=== PATIENT | male | born 1970 | race Caucasian/White ===

== ENCOUNTER → 2018-07-20 08:30 | Outpatient (CLI) | payer OTHER, MEDICAID, SELFPAY ==
[2018-07-20 10:18] LABS: Thyroid Stimulating Hormone 0.64 uIU/mL (0.47-4.68)
== END ==
PROVIDERS: Visit Provider Internal Medicine Endocrinology, Diabetes & Metabolism
DX: E03.8 Other specified hypothyroidism (principal)
CPT/HCPCS: 36415; 84443

== ENCOUNTER 2020-09-06 23:09 | Emergency (ER) | payer OTHER, MEDICAID, SELFPAY ==
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
[2020-09-06 23:28] VITALS: BP 133/92; PULSE 97; RESP 18; TEMP 36.6; O2SAT 98; BMI 31.1
[2020-09-07] MEDS: CYCLOBENZAPRINE 10 MG PREPACK 1 BOTTLE MISC (00:37)
[2020-09-07] MEDS: LIDOCAINE PATCH 1 EACH ADH..PATCH TOP (00:37)
[2020-09-07] MEDS: KETOROLAC 60 MG/2 ML VIAL IM (00:37)
== END 2020-09-07 00:54 | disposition home or self-care (01) ==
PROVIDERS: Emergency Provider Emergency Medicine; Family Provider Internal Medicine Endocrinology, Diabetes & Metabolism
DX: M62.838 Other muscle spasm (principal); V89.2XXA Person injured in unspecified motor-vehicle accident, traffic, initial encounter
CPT/HCPCS: 96372; 99283; J1885

== ENCOUNTER → 2021-06-16 15:01 | Outpatient (CLI) | payer OTHER, MEDICAID, SELFPAY ==
[2021-06-16 15:40] LABS: Add Manual Diff / Slide Review NO; Basophils Absolute Auto 0 /uL (0-100); Basophils Percent Auto 0.2 % (0-2); Eosinophils Absolute Auto 200 /uL (0-450); Eosinophils Percent Auto 2.2 % (2-4); Lymphocytes Absolute Auto 2100 /uL (1100-4500); Lymphocytes Percent Auto 28.1 % (25-40); Mean Corpuscular Hemoglobin 30.8 PG (26-34); Mean Corpuscular Volume 90.6 fL (80-100); Monocytes Absolute Auto 600 /uL (0-900); Monocytes Percent Auto 8.8 % (3-14); Neutrophils Absolute Auto 4400 /uL (1500-7000); Neutrophils Percent Auto 60.7 % (50-75); Platelet Count 279 X10^3/uL (150-400); Red Blood Cell Count 4.86 X10^6/uL (4.5-5.9); Red Cell Distribution Width 13.3 % (11.6-14.8); White Blood Cell Count 7.3 X10^3/uL (4.5-11.0)
[2021-06-16 16:07] LABS: Alanine Aminotransferase 64 IU/L (<50); Albumin 4.5 g/dL (3.5-5.0); Albumin Globulin Ratio 1.5 (1.0-2.8); Alkaline Phosphatase 70 U/L (38-126); Aspartate Aminotransferase 47 IU/L (17-59); Bilirubin Total 0.5 mg/dL (0.2-1.3); Bilirubin Unconjugated 0.3 mg/dL (0.0-1.1); HEMOLYSIS 34 (0-50); Total Protein 7.5 g/dL (6.3-8.2)
[2021-06-16 16:36] LABS: Prostate Specific Antigen Scrn 0.898 ng/mL (0.1-4.0)
== END ==
PROVIDERS: Family Provider Internal Medicine Endocrinology, Diabetes & Metabolism; Referring Provider Internal Medicine Endocrinology, Diabetes & Metabolism; Visit Provider Internal Medicine Endocrinology, Diabetes & Metabolism
DX: E03.8 Other specified hypothyroidism (principal); E29.1 Testicular hypofunction
CPT/HCPCS: 36415; 80076; 85025; G0103

== ENCOUNTER 2021-11-02 00:39 | Emergency (ER) | payer OTHER, MEDICAID, SELFPAY ==
[2021-11-02 00:48] VITALS: BP 172/111; PULSE 111; RESP 18; TEMP 36.6; O2SAT 95; BMI 32.5
--- NOTE | 2021-11-02 01:22 | ED_ITS ---
HPI - Extremity Problem General Chief complaint: Extremity Problem,Nontraumatic Stated complaint: rt leg swelling, itching Time Seen by Provider: 11/02/21 01:12 Source: patient Mode of arrival: Ambulatory Limitations: no limitations History of Present Illness HPI Narrative: This is a 50-year-old male comes in with complaint of right leg having or redness, itching and swelling. Patient states he developed a wound on his right anterior constantino. He states he believes this was after ring rubber boots underneath his pants. These were new boots for work and that they rubbed on his leg. He got a wound and then has since developed infection. He states that was about a week ago. He has had swelling, warmth but states it is only minimally painful. He states he does need medication for hypothyroidism. He does smoke, he drinks occasionally and uses marijuana and methamphetamines. He states he does not use IV drugs. He denies fevers or chills. No nausea or vomiting or other symptoms. No numbness, tingling or weakness. He has had a cholecystectomy in the past. Related Data Home Medications Medication Instructions Recorded Confirmed testosterone 75 mg implant pellet 75 mg PO #0 08/24/16 (Testopel) Previous Rx's Medication Instructions Recorded cephalexin 500 mg capsule (Keflex) 500 mg PO TID 7 Days #0 cap 08/24/16 naproxen 500 mg tablet 500 mg PO Q12HP PRN #20 tab 08/24/16 cyclobenzaprine 10 mg tablet 10 mg PO TID PRN #14 tab 09/07/20 ketorolac 10 mg tablet 10 mg PO Q6H PRN #14 tab 09/07/20 lidocaine 5 % topical patch 1 patch TOP DAILY #15 each 09/07/20 (Lidoderm) doxycycline hyclate 100 mg tablet 100 mg PO BID #20 tab 11/02/21 Allergies Allergy/AdvReac Type Severity Reaction Status Date / Time No Known Drug Allergies Allergy Verified 09/07/20 00:50 Review of Systems Review of Systems ROS Unobtainable: All systems reviewed & are unremarkable except as noted in HPI and below Patient History Social History Smoking Status: Current every day smoker Smoking Status: Current every day smoker tobacco type: cigarettes alcohol intake frequency: 0-2 drinks per day Substance Use Type: marijuana and methamphetamine Exam Narrative Exam Narrative: GENERAL: Alert and oriented x three, male in mild distress. HEENT: Head normocephalic, atraumatic, EOMI, pupils reactive, face symmetric, moist mucous membranes NECK: Supple, full range of motion CARDIOVASCULAR: Regular rate and rhythm without murmurs, rubs or gallops. RESPIRATORY: Breath sounds equal bilaterally, no wheezes rales or rhonchi. ABDOMEN: Soft, nontender. Normoactive bowel sounds all 4 quadrants. No guarding or rebound, rigidity, no mass : No CVA tenderness EXTREMITIES: Normal range of motion. Patient's right leg has a new 1/2 cm oval wound that is scabbed over without any drainage, fluctuance or induration but there is a surrounding area of 7 cm of cellulitis tracking down his leg. There is warmth. Patient does have swelling of the calf. He is neurovascularly intact. Normal range of motion. 2+ dorsalis pedis. Patient has normal sensation throughout. NEUROLOGICAL: Cranial nerves II through XII grossly intact. Moving all extremities SKIN: Warm, dry, no petechiae, no rashes or lesions otherwise appreciated. Initial Vital Signs Initial Vital Signs: Vital Signs Temperature 97.8 F 11/02/21 00:48 Pulse Rate 111 H 11/02/21 00:48 Respiratory Rate 18 11/02/21 00:48 Blood Pressure 172/111 H 11/02/21 00:48 Pulse Oximetry 95 11/02/21 00:48 Course Orders Ordered: Discontinued Medications Doxycycline Hyclate (Doxycycline Hyclate 100 Mg Tablet) 100 mg PO NOW ONE Stop: 11/02/21 01:20 Last Admin: 11/02/21 01:26 Dose: 100 mg Documented by: SACHIN Vital Signs Vital signs: Vital Signs - 8 hr 11/02/21 00:48 Temperature 97.8 F Pulse Rate 111 H Respiratory Rate 18 Blood Pressure 172/111 H Pulse Oximetry 95 MDM - Extremity (Nontraumatic) [facility] Narrative Medical decision making narrative: This is a 50-year-old man emergency department with a wound and cellulitis that is been present for approximately a week. The wound itself is scab without any drainage but he has surrounding cellulitis. Patient does have a history of methamphetamine abuse but states he does not inject drugs. We discussed starting oral antibiotics. We did discuss obtaining lab work and further evaluation but patient states he is quite difficult to obtain labs are IV access and defers. Patient's leg was marked and he was asked to return if cellulitis is spreading beyond this line or if he is not having any improvement 48 hours. Discharge Plan Departure Patient Disposition: Home Clinical Impression: Wound of left leg, Cellulitis of leg Instructions: DI for Cellulitis -- Adult Activity Restrictions/Additional Instructions: Follow-up in 48 hours for recheck unless you are having significant improvement. Take antibiotics until completely gone. Prescription sent to [facility] in [place]. Wound Care: Keep wound(s) clean and dry. Wash daily with soap and water only. Do not use over the counter products (alcohol or peroxide)on the wounds unless instructed by a physician. If wound condition worsens (increased/expanding redness, developing fluid blisters, or worsening pain), either contact your doctor for an urgent re- assessment , or return to the Emergency Department. Return to the Emergency Department for any new or worsening symptoms. Return if fever greater than 100.4 Fahrenheit, increased swelling, increasing pain or worsening symptoms such as increased discharge or spreading redness. Prescriptions: New doxycycline hyclate 100 mg tablet 100 mg PO BID Qty: 20 0RF No Action testosterone [Testopel] 75 MG pellet 75 mg PO Qty: 0 0RF cephalexin [Keflex] 500 MG capsule 500 mg PO TID 7 Days Qty: 0 0RF naproxen 500 MG tablet 500 mg PO Q12HP PRNQty: 20 0RF cyclobenzaprine 10 mg tablet 10 mg PO TID PRN (Reason: muscle spasm) Qty: 14 0RF ketorolac 10 mg tablet 10 mg PO Q6H PRN (Reason: pain) Qty: 14 0RF lidocaine [Lidoderm] 5 % adhesive patch,medicated 1 patch TOP DAILY Qty: 15 0RF Rx Instructions: leave on most painful area for 12 hrs
[2021-11-02] MEDS: DOXYCYCLINE HYCLATE 100 MG TABLET PO (01:26)
== END 2021-11-02 01:32 | disposition home or self-care (01) ==
PROVIDERS: Emergency Provider Emergency Medicine; Family Provider Internal Medicine Endocrinology, Diabetes & Metabolism
DX: S81.802A Unspecified open wound, left lower leg, initial encounter (principal); L03.116 Cellulitis of left lower limb; F17.210 Nicotine dependence, cigarettes, uncomplicated; X58.XXXA Exposure to other specified factors, initial encounter
CPT/HCPCS: 99283

== ENCOUNTER → 2022-01-19 12:58 | Outpatient (CLI) | payer OTHER, MEDICAID, SELFPAY ==
--- NOTE | 2022-01-19 | DI.MG.S_ITS ---
MALE BILATERAL DIGITAL DIAGNOSTIC MAMMOGRAM 3D/2D: 01/19/2022 CLINICAL: Palpable left breast lump. baseline. No prior exams were available for comparison. There is mild gynecomastia in the right breast. There also is large area of presumed gynecomastia in the left breast that correlates with clinical concern, palpable abnormality, and reported tenderness. No significant masses, calcifications, or other findings are seen in either breast. IMPRESSION: INCOMPLETE: NEEDS ADDITIONAL IMAGING EVALUATION There is a large area of presumed gynecomastia in the left breast that correlates with clinical concern, palpable abnormality, and reported tenderness. This is significantly more pronounced than the right breast. A left ultrasound is recommended for further evaluation and is scheduled to immediately follow this examination. Right breast gynecomastia is benign. This exam was interpreted at Station ID: [id number]. NOTE: For mammograms, a report in lay terms will be sent to the patient. Approximately 15% of breast malignancies will not be visualized mammographically. In the management of a palpable breast mass, a negative mammogram must not discourage biopsy of a clinically suspicious lesion. Electronically Signed By: Olivier Hahn M.D. aty/:01/19/2022 13:45:59 ACR BI-RADS Category 0: Incomplete [id number]
--- NOTE | 2022-01-19 | DI.US.S_ITS ---
PROCEDURE: US THYROID INDICATIONS: HYPOTHYROID TECHNIQUE: Real-time scanning was performed of the thyroid gland, with image documentation. COMPARISON: None. FINDINGS: Right: Thyroid lobe measures 2.5 x 1.0 x 1.1 cm, and is homogeneous in echotexture. Left: Thyroid lobe measures 2.4 x 0.8 x 1 cm, and is homogenous in echotexture. Isthmus: 2.1 mm thick. No thyroid nodules or masses. Thyroid gland has diffusely heterogeneous echotexture. IMPRESSION: No thyroid nodules or masses. Diffuse thyroid gland heterogeneous echotexture is nonspecific but can be related to chronic thyroiditis. Please correlate with clinical and laboratory Dictated by: Eunice Hayward MD, PhD on 01/19/2022 at 15:34 Approved by: Eunice Hayward MD, PhD on 01/19/2022 at 15:35
--- NOTE | 2022-01-19 | DI.US.S_ITS ---
PROCEDURE: US ABDOMEN LIMITED INDICATIONS: ELEVATED LIVER ENZYMES TECHNIQUE: Real-time focused scanning was performed of the abdomen, with image documentation. COMPARISON: None. FINDINGS: Severe hepatic steatosis. No focal hepatic mass. There is a 1 cm simple cyst in the right hepatic lobe. No intrahepatic or extrahepatic biliary ductal dilatation. Cholecystectomy. Pancreas is poorly visualized but grossly unremarkable. IMPRESSION: Severe hepatic steatosis. Dictated by: Silas Kelly M.D. on 01/19/2022 at 15:43 Approved by: Silas Kelly M.D. on 01/19/2022 at 15:45
--- NOTE | 2022-01-19 | DI.US.S_ITS ---
ULTRASOUND OF LEFT BREAST: 01/19/2022 CLINICAL: Palpable left breast lump. Comparison is made to exam dated: 01/19/2022 mammogram - [facility]. Color flow and real-time ultrasound of the left breast were performed. [place] scale images of the real-time examination were reviewed. There is prominent gynecomastia in the left breast that correlates with mammography, clinical concern, and reported tenderness. IMPRESSION: BENIGN There is no sonographic evidence of malignancy. Recommend clinical follow up for persistent or worsening symptoms, or development of any clinically suspicious findings. Findings and recommendations were conveyed to the patient during today's evaluation. This exam was interpreted at Station ID: [id number]. Electronically Signed By: Olivier Hahn M.D. aty/:01/19/2022 16:47:30 Ultrasound BI-RADS: 2 Benign
== END ==
PROVIDERS: Family Provider Internal Medicine Endocrinology, Diabetes & Metabolism; PCP Internal Medicine Endocrinology, Diabetes & Metabolism; Referring Provider Internal Medicine Endocrinology, Diabetes & Metabolism; Visit Provider Internal Medicine Endocrinology, Diabetes & Metabolism
DX: N62 Hypertrophy of breast (principal); R74.8 Abnormal levels of other serum enzymes; E03.9 Hypothyroidism, unspecified; R92.8 Other abnormal and inconclusive findings on diagnostic imaging of breast; E29.1 Testicular hypofunction; K76.0 Fatty (change of) liver, not elsewhere classified
CPT/HCPCS: 76536; 76642; 76705; 77066; G0279

== ENCOUNTER 2022-05-16 02:18 | Emergency (ER) | payer OTHER, MEDICAID, SELFPAY ==
[2022-05-16 02:26] VITALS: BP 127/87; PULSE 119; RESP 20; TEMP 36.7; O2SAT 96; BMI 32.5
--- NOTE | 2022-05-16 02:28 | DI.RAD.S_ITS ---
PROCEDURE: XR FOREARM LT 2V INDICATIONS: Dog bite with infection eval for FB TECHNIQUE: 2 views of the forearm were acquired. COMPARISON: None. FINDINGS: Bones: No fractures or dislocations. No suspicious bony lesions. Soft tissues: No suspicious soft tissue calcifications or masses. IMPRESSION: Unremarkable left forearm radiographs Note: Final report is concordant with preliminary interpretation by [employer] [facility] Approved by: Michael Michael M.D. on 05/16/2022 at 6:32
--- NOTE | 2022-05-16 02:32 | ED_ITS ---
HPI - Animal Bite General Chief Complaint: Animal Bite Stated Complaint: DOG BITE Time Seen by Provider: 05/16/22 02:26 Source: patient Mode of arrival: Ambulatory History of Present Illness HPI narrative: Patient is a 51-year-old male who is here for evaluation of swelling and discomfort after sustaining a dog bite to his left forearm. Dog bite occurred approximately 36 hours ago. He stated that it was provoked from dog that belongs to a friend that is up-to-date on shots. He states that he pulled the dog's tail and the dog turned around and bit him in the arm. Since that time he has had worsening pain and swelling. No fevers. Related Data Home Medications Medication Instructions Recorded Confirmed testosterone 75 mg implant pellet 75 mg PO ##0 08/24/16 (Testopel) Previous Rx's Medication Instructions Recorded cephalexin 500 mg capsule (Keflex) 500 mg PO TID 7 days #0 caps 08/24/16 naproxen 500 mg tablet 500 mg PO Q12HP PRN #20 tabs 08/24/16 cyclobenzaprine 10 mg tablet 10 mg PO TID PRN muscle spasm #14 09/07/20 tabs ketorolac 10 mg tablet 10 mg PO Q6H PRN pain #14 tabs 09/07/20 lidocaine 5 % topical patch 1 patch topical DAILY #15 ea 09/07/20 (Lidoderm) doxycycline hyclate 100 mg tablet 100 mg PO BID #20 tabs 11/02/21 clindamycin HCl 300 mg capsule 300 mg PO QID 7 days #28 caps 05/16/22 sulfamethoxazole 800 1 tab PO BID 7 days #14 tabs 05/16/22 mg-trimethoprim 160 mg tablet (Bactrim DS) Allergies Allergy/AdvReac Type Severity Reaction Status Date / Time No Known Drug Allergies Allergy Verified 09/07/20 00:50 Review of Systems Constitutional Constitutional: Reports system reviewed and no additional complaints, except as documented Musculoskeletal Musculoskeletal: Reports system reviewed and no additional complaints, except as documented Integumentary/Breasts Skin/Breast: Reports system reviewed and no additional complaints, except as documented Neurologic Neurologic: Reports system reviewed and no additional complaints, except as documented Hematologic/Lymphatic On Anticoagulants: No Patient History Medical History Wound of left leg Social History Smoking Status: Current every day smoker Smoking Status: Current every day smoker tobacco type: cigarettes alcohol intake frequency: 0-2 drinks per day Substance Use Type: marijuana Exam Initial Vital Signs Initial Vital Signs: Vital Signs Temperature 98.1 F 05/16/22 02:26 Pulse Rate 119 H 05/16/22 02:26 Respiratory Rate 20 05/16/22 02:26 Blood Pressure 127/87 05/16/22 02:26 Pulse Oximetry 96 05/16/22 02:26 Oxygen Delivery Method 05/16/22 02:26 HENMT Head: normal to inspection and normocephalic Resp Effort & Inspection: normal respiratory effort Cardio Rate: regular rate Pulses: radial pulses present on the left Skin Other: Patient has 2 puncture wounds on the dorsal aspect of his left forearm just distal to the elbow. There is no active bleeding. He does have redness ex tending from his elbow down to the distal 1/3 of his left forearm. No redness on the volar aspect of his arm. Neuro Sensory Exam: no sensory deficits noted Extrem Other: Swelling and redness to the left forearm as described in the skin section Course Orders Ordered: ED Orders 05/16/22 02:28 XR forearm LT 2V Stat 05/16/22 02:39 Basic Metabolic Panel Stat Complete Blood Count AUTO DIFF Stat Lactate (Lactic Acid) Stat 05/16/22 03:00 Blood Culture Stat Discontinued Medications Hydrocodone Bitart/Acetaminophen (Hydrocodone/Acet 5/325 Tablet) 1 tab PO NOW ONE Stop: 05/16/22 02:56 Last Admin: 05/16/22 02:58 Dose: 1 tab Documented By: SINDY Diphtheria/Tetanus/Acell Pertussis (Tet,Diph,Pertuss(Acell),Vac/Pf 0.5 Ml Syringe) 0.5 ml IM .ONCE ONE Stop: 05/16/22 02:31 Last Admin: 05/16/22 02:56 Dose: 0.5 ml Documented By: SINDY Clindamycin Phosphate (Cleocin) 600 mg in 50 mls @ 50 mls/hr IV NOW ONE Stop: 05/16/22 03:30 Last Admin: 05/16/22 02:56 Dose: 50 mls/hr Documented By: SINDY Trimethoprim/Sulfamethoxazole (Trimeth/Sulfa 160/800 (Ds) Tablet) 1 tab PO NOW ONE Stop: 05/16/22 02:32 Last Admin: 05/16/22 02:57 Dose: 1 tab Documented By: SINDY Vital Signs Vital signs: Vital Signs - 8 hr 05/16/22 02:26 Temperature 98.1 F Pulse Rate 119 H Respiratory Rate 20 Blood Pressure 127/87 Pulse Oximetry 96 Oxygen Delivery Method Room Air MDM - Animal Bite Lab Data Attestation: I reviewed the patient's lab results. Result diagrams: 05/16/22 02:39 05/16/22 02:39 Labs: Lab Results 05/16/22 05/16/22 05/16/22 Range/Units 02:39 02:39 02:39 WBC 14.6 H (4.5-11.0) X10^3/uL RBC 4.52 (4.5-5.9) X10^6/uL Hgb 13.8 (13.5-17.5) g/dL Hct 41.0 (41-53) % MCV 90.8 (80-100) fL MCH 30.5 (26-34) PG MCHC 33.6 (30-36) % RDW 13.4 (11.6-14.8) % Plt Count 248 (150-400) X10^3/uL Neut % (Auto) 75.6 H (50-75) % Lymph % (Auto) 14.0 L (25-40) % [place] % (Auto) 9.3 (3-14) % Eos % (Auto) 0.3 L (2-4) % Baso % (Auto) 0.8 (0-2) % Neut # (Auto) 14183 H (7271-2987) /uL Lymph # (Auto) 2000 (3752-5871) /uL [place] # (Auto) 1400 H (0-900) /uL Eos # (Auto) 0 (0-450) /uL Baso # (Auto) 100 (0-100) /uL Sodium 135 L (137-145) mmol/L Potassium 4.0 (3.4-5.1) mmol/L Chloride 100 (98-107) mmol/L Carbon Dioxide 25 (22-32) mmol/L BUN 14 (9-20) mg/dL Creatinine 1.10 (0.66-1.25) mg/dL Estimated GFR > 60 (>60) mL/min BUN/Creatinine Ratio 12.7 (6-22) Glucose 136 H (70-100) mg/dL Lactate 1.3 (0.7-2.1) mmol/L Calcium 9.4 (8.4-10.2) mg/dL Imaging Data Extremity x-ray #1: My Impression: No fractures, no foreign bodies MDM Narrative Medical decision making narrative: Patient does have obvious skin infection from the dog bite of the left forearm. Low suspicion for abscess based on his exam today. Was initially tachycardic however this did improve with pain medication. His heart rate improved from the 110's to the 100's. Does have a leukocytosis but also has a known skin infection. Patient is able to tolerate oral intake. His lactate is unremarkable. No foreign bodies noted on the x-ray. Patient was given clindamycin and Bactrim upon arrival as decision was made as to whether not to admit him to the hospital for IV antibiotics versus discharge. This choice of antibiotics was based on the fact that it was available as IV but also would be available was an oral preparation if he was discharged home. Based on his ability to tolerate oral intake, his improvement in heart rate after his pain was controlled, the fact that he is nontoxic-appearing will discharge home with oral antibiotics although he was given very strict return precautions. Since he was already started on clinda and Bactrim we will continue this. It was sent to the pharmacy of his choice. He was given strict return precautions. He expressed understanding and agreement. Patient's tetanus was also updated Discharge Plan Departure Patient Disposition: Home Clinical Impression: Cellulitis, Bite by animal Instructions: DI for Cellulitis -- Adult, DI for Dog Bite Activity Restrictions/Additional Instructions: You can shower like normal. It is extremely important that you continue with the antibiotics. They were electronically transmitted to [facility]. They are the same antibiotics that you were given here in the emergency department although they are both medications that she will take by mouth. If your symptoms worsen or you develop fevers or the redness worsens around your arm you do need to return to the emergency department for further evaluation. Your tetanus was also updated today. Prescriptions: New sulfamethoxazole-trimethoprim [Bactrim DS] 800-160 mg tablet 1 tab PO BID 7 Days Qty: 14 0RF clindamycin HCl 300 mg capsule 300 mg PO QID 7 Days Qty: 28 0RF No Action testosterone [Testopel] 75 MG pellet 75 mg PO Qty: 0 cephalexin [Keflex] 500 MG capsule 500 mg PO TID 7 Days Qty: 0 0RF naproxen 500 MG tablet 500 mg PO Q12HP PRNQty: 20 0RF cyclobenzaprine 10 mg tablet 10 mg PO TID PRN (Reason: muscle spasm) Qty: 14 0RF ketorolac 10 mg tablet 10 mg PO Q6H PRN (Reason: pain) Qty: 14 0RF lidocaine [Lidoderm] 5 % adhesive patch,medicated 1 patch TOP DAILY Qty: 15 0RF Rx Instructions: leave on most painful area for 12 hrs doxycycline hyclate 100 mg tablet 100 mg PO BID Qty: 20 0RF Referrals: Javy Banegas MD [Primary Care Provider] -
[2022-05-16 02:51] LABS: Add Manual Diff / Slide Review NO; Basophils Absolute Auto 100 /uL (0-100); Basophils Percent Auto 0.8 % (0-2); Eosinophils Absolute Auto 0 /uL (0-450); Eosinophils Percent Auto 0.3 % (2-4); Hemoglobin 13.8 g/dL (13.5-17.5); Lymphocytes Absolute Auto 2000 /uL (1100-4500); Mean Corpuscular HGB Conc 33.6 % (30-36); Mean Corpuscular Hemoglobin 30.5 PG (26-34); Mean Corpuscular Volume 90.8 fL (80-100); Monocytes Absolute Auto 1400 /uL (0-900); Monocytes Percent Auto 9.3 % (3-14); Neutrophils Absolute Auto 11000 /uL (1500-7000); Neutrophils Percent Auto 75.6 % (50-75); Platelet Count 248 X10^3/uL (150-400); Red Blood Cell Count 4.52 X10^6/uL (4.5-5.9); Red Cell Distribution Width 13.4 % (11.6-14.8); White Blood Cell Count 14.6 X10^3/uL (4.5-11.0)
[2022-05-16] MEDS: TET,DIPH,PERTUSS(ACELL),VAC/PF 0.5 ML SYRINGE IM (02:56)
[2022-05-16] MEDS: CLINDAMYCIN 600 MG/50 ML PIGGYBACK 50 MG IV (02:56)
[2022-05-16] MEDS: TRIMETH/SULFA 160/800 (DS) TABLET 1 TAB PO (02:57)
[2022-05-16] MEDS: HYDROCODONE/ACET 5/325 TABLET 1 TAB PO (02:58)
[2022-05-16 03:04] LABS: Lactate (Lactic Acid) 1.3 mmol/L (0.7-2.1)
[2022-05-16 03:05] LABS: BUN Creatinine Ratio 12.7 (6-22); Blood Urea Nitrogen 14 mg/dL (9-20); Calcium 9.4 mg/dL (8.4-10.2); Carbon Dioxide 25 mmol/L (22-32); Chloride 100 mmol/L (98-107); Estimated Glomerular Filt Rate > 60 mL/min (>60); Glucose 136 mg/dL (70-100); HEMOLYSIS 27 (0-50); Sodium 135 mmol/L (137-145)
== END 2022-05-16 04:30 | disposition home or self-care (01) ==
PROVIDERS: Emergency Provider Emergency Medicine; Family Provider Internal Medicine Endocrinology, Diabetes & Metabolism; PCP Internal Medicine Endocrinology, Diabetes & Metabolism
DX: L03.114 Cellulitis of left upper limb (principal); W54.0XXA Bitten by dog, initial encounter; Z23 Encounter for immunization
CPT/HCPCS: 36415; 73090; 80048; 83605; 85025; 87040; 90471; 96365; 96366; 99284; 90715

== ENCOUNTER 2022-10-25 02:06 | Emergency (ER) | payer OTHER, MEDICAID, SELFPAY ==
--- NOTE | 2022-10-25 02:26 | ED_ITS ---
HPI - General Adult General Chief complaint: Animal Bite Stated complaint: LT. HAND INDEX FINGER CAT BITE Time Seen by Provider: 10/25/22 02:24 History of Present Illness HPI narrative: 51-year-old gentleman with history of pituitary adenoma presents approximately 12 hours after sustaining a puncture wound full-thickness cat bite to his left index finger. States he was giving his cat a bath when it became somewhat agitated and bit him. He did wash the wound well but over the ensuing 12 hours is noticed increasing throbbing, swelling and redness he comes in for further evaluation. He does not note any fevers, nausea, headaches, abdominal pain, vomiting or diarrhea Related Data Home Medications Medication Instructions Recorded Confirmed testosterone 75 mg implant pellet 75 mg PO ##0 08/24/16 (Testopel) Previous Rx's Medication Instructions Recorded cephalexin 500 mg capsule (Keflex) 500 mg PO TID 7 days #0 caps 08/24/16 naproxen 500 mg tablet 500 mg PO Q12HP PRN #20 tabs 08/24/16 cyclobenzaprine 10 mg tablet 10 mg PO TID PRN muscle spasm #14 09/07/20 tabs ketorolac 10 mg tablet 10 mg PO Q6H PRN pain #14 tabs 09/07/20 lidocaine 5 % topical patch 1 patch topical DAILY #15 ea 09/07/20 (Lidoderm) doxycycline hyclate 100 mg tablet 100 mg PO BID #20 tabs 11/02/21 amoxicillin 875 mg-potassium 1 tab PO BID #18 tabs 10/25/22 clavulanate 125 mg tablet Allergies Allergy/AdvReac Type Severity Reaction Status Date / Time No Known Drug Allergies Allergy Verified 10/25/22 02:27 Review of Systems Review of Systems Narrative: Remainder of complete review of systems is otherwise unremarkable except for that included in the HPI. Patient History Medical History Wound of left leg Social History Smoking Status: Current every day smoker Smoking Status: Current every day smoker tobacco type: cigarettes alcohol intake frequency: 0-2 drinks per day Substance Use Type: marijuana Exam Initial Vital Signs Initial Vital Signs: General: Alert appropriate in no acute distress Respiratory: Able to speak in full sentences, no obvious respiratory distress Skin: No obvious rashes, warm and dry Neurologic: Grossly intact no obvious asymmetries or abnormalities Psych: appropriate insight and affect, cooperative Extremity: Left index finger with a small laceration over the nail bed and 2 small puncture wounds appreciated on the finger pad. There is no drainage or bleeding. The finger is increasing red, swollen and tender with no lymphangitic streaking. He does have limited range of motion because of the swelling but he is otherwise neurovascularly intact. There is no axillary adenopathy. Medical Decision Making MDM Narrative Medical decision making narrative: 51-year-old gentleman presents approximately 12 hours after his cat bit him in left index finger with signs of infection starting. No obvious abscess. No wounds that need suturing. Have suggested 10 days of Augmentin and will give him a dose now and 3 doses until pharmacies are open on the . Talked about deep tissue infection and complications with hand wounds and encouraged him to return to the emergency department should he be developing any signs or symptoms of these. At this point I do not expect sepsis, osteomyelitis, abscess development. He is safe for discharge home Discharge Plan Departure Patient Disposition: Home Clinical Impression: Cat bite Instructions: DI for Cat Bite Activity Restrictions/Additional Instructions: Thank you for coming in today Cat bites and fingertip infections can get quite infected. I am going to place you on Augmentin common antibiotic, for the next 10 days. You have been given your 1st dose and a couple of tablets to get you through [place] and a prescription to picking machine operator by the . Please watch for signs of increasing swelling, redness, any streaking up her arm needs to be evaluated immediately. I would expect at least 24 hours before the swelling and pain does begin to decrease but it should not be significantly worsening. The Augmentin was electronically transmitted to [facility] in [place] Using 400 mg of ibuprofen (2 [id number] pills) and 1 Tylenol every 6 hours can be very helpful in controlling pain. If you find that you are getting worse or develop any new symptoms, please feel free to return to the emergency department for further evaluation. Prescriptions: New amoxicillin-pot clavulanate 875-125 mg tablet 1 tab PO BID Qty: 18 0RF No Action testosterone [Testopel] 75 MG pellet 75 mg PO Qty: 0 cephalexin [Keflex] 500 MG capsule 500 mg PO TID 7 Days Qty: 0 0RF naproxen 500 MG tablet 500 mg PO Q12HP PRNQty: 20 0RF cyclobenzaprine 10 mg tablet 10 mg PO TID PRN (Reason: muscle spasm) Qty: 14 0RF ketorolac 10 mg tablet 10 mg PO Q6H PRN (Reason: pain) Qty: 14 0RF lidocaine [Lidoderm] 5 % adhesive patch,medicated 1 patch TOP DAILY Qty: 15 0RF Rx Instructions: leave on most painful area for 12 hrs doxycycline hyclate 100 mg tablet 100 mg PO BID Qty: 20 0RF Referrals: Javy Banegas MD [Primary Care Provider] -
[2022-10-25 02:27] VITALS: BP 170/96; PULSE 106; RESP 18; TEMP 36.8; O2SAT 97; BMI 32.5
[2022-10-25] MEDS: OXYCODONE/ACETAMINOPHEN 5/325 TABLET 1 TAB PO (02:48)
[2022-10-25] MEDS: AMOXICILLIN/CLAV 875/125 MG 4 TAB PO (02:48)
[2022-10-25] MEDS: OXYCODONE/APAP 5/325 PREPACK 1 BOTTLE MISC (02:48)
[2022-10-25] MEDS: IBUPROFEN 400 MG TABLET PO (02:48)
== END 2022-10-25 02:56 | disposition home or self-care (01) ==
PROVIDERS: Emergency Provider Emergency Medicine; Family Provider Internal Medicine Endocrinology, Diabetes & Metabolism; PCP Internal Medicine Endocrinology, Diabetes & Metabolism
DX: S61.251A Open bite of left index finger without damage to nail, initial encounter (principal); W55.01XA Bitten by cat, initial encounter
CPT/HCPCS: 99283

== ENCOUNTER 2023-04-25 18:14 | Emergency (ER) | payer OTHER, MEDICAID, SELFPAY ==
[2023-04-25 18:24] VITALS: BP 175/95; PULSE 115; RESP 20; TEMP 38.3; O2SAT 96; BMI 32.5
[2023-04-25 19:03] LABS: Influenza A - CEPHEID Flu A POSITIVE (NEGATIVE); Influenza B - CEPHEID Flu B NEGATIVE (NEGATIVE); Respiratory Syncytial Virus Negative (Negative)
[2023-04-25 19:13] LABS: COVID-19 CEPHEID 4-PLEX PCR Negative (Negative)
--- NOTE | 2023-04-25 19:36 | ED_ITS ---
HPI - URI/Sore Throat General Chief Complaint: Fever Stated Complaint: FEVER 104F Time Seen by Provider: 04/25/23 19:14 Source: patient and family Mode of arrival: Ambulatory History of Present Illness HPI Narrative: Patient is a 52-year-old male history of smoking presenting today with 3 days of body aches fevers chills and generalized malaise. He has a mild cough no significant shortness of breath. No abdominal pain nausea or vomiting. He has been trying to drink fluid overall does not feel well. Related Data Home Medications Medication Instructions Recorded Confirmed testosterone 75 mg implant pellet 75 mg PO ##0 08/24/16 (Testopel) Previous Rx's Medication Instructions Recorded cephalexin 500 mg capsule (Keflex) 500 mg PO TID 7 days #0 caps 08/24/16 naproxen 500 mg tablet 500 mg PO Q12HP PRN #20 tabs 08/24/16 cyclobenzaprine 10 mg tablet 10 mg PO TID PRN muscle spasm #14 09/07/20 tabs ketorolac 10 mg tablet 10 mg PO Q6H PRN pain #14 tabs 09/07/20 lidocaine 5 % topical patch 1 patch topical DAILY #15 ea 09/07/20 (Lidoderm) doxycycline hyclate 100 mg tablet 100 mg PO BID #20 tabs 11/02/21 amoxicillin 875 mg-potassium 1 tab PO BID #18 tabs 10/25/22 clavulanate 125 mg tablet Allergies Allergy/AdvReac Type Severity Reaction Status Date / Time No Known Drug Allergies Allergy Verified 04/25/23 18:30 Review of Systems Review of Systems ROS Unobtainable: All systems reviewed & are unremarkable except as noted in HPI and below Patient History Medical History Wound of left leg Social History Smoking Status: Current every day smoker Smoking Status: Current every day smoker tobacco type: cigarettes alcohol intake frequency: 0-2 drinks per day Substance Use Type: marijuana Exam Initial Vital Signs Initial Vital Signs: Vital Signs Temperature 101 F H 04/25/23 18:24 Pulse Rate 115 H 04/25/23 18:24 Respiratory Rate 20 04/25/23 18:24 Blood Pressure 175/95 H 06/25/23 18:24 Pulse Oximetry 96 04/25/23 18:24 Oxygen Delivery Method Room Air 04/25/23 18:24 GENERAL: Alert 52-year-old male appears to not feel well HEENT: Head atraumatic,EOMI, pupils reactive, face symmetric, moist mucous me mbranes CARDIOVASCULAR: Tachycardic regular no murmur RESPIRATORY: Breath sounds equal bilaterally, no wheezes rales or rhonchi. ABDOMEN: Soft, nontender. Normoactive bowel sounds all 4 quadrants. No guarding or rebound. EXTREMITIES: Normal range of motion, no clubbing or edema. Neurovascularly intact NEUROLOGICAL: Alert and oriented x4 SKIN: Warm, dry, no laceration, no petechiae, no rashes or lesions. Course Orders Ordered: ED Orders 04/25/23 19:43 Chest [XR chest 1V] Stat Blood Culture Stat 04/25/23 20:10 CBC Auto Diff [Complete Blood Count AUTO DIFF] Stat CMP [Comprehensive Metabolic Panel] Stat Lactate (Lactic Acid) Stat Discontinued Medications Sodium Chloride (Normal Saline 0.9%) 1,000 mls @ 1,000 mls/hr IV BOLUS ONE Stop: 04/25/23 20:42 Last Infusion: 04/25/23 21:15 Dose: 0 mls/hr Documented By: Admin: 04/25/23 20:15 Dose: 1,000 mls/hr Documented By: MATEO Ketorolac Tromethamine (Ketorolac 30 Mg/Ml Vial) 15 mg IV NOW ONE Stop: 04/25/23 19:44 Last Admin: 04/25/23 20:15 Dose: 15 mg Documented By: MATEO Vital Signs Vital signs: Vital Signs - 8 hr 04/25/23 20:22 04/25/23 21:30 Temperature 99.9 F H Pulse Rate 113 H 100 H Respiratory Rate 16 16 Blood Pressure 136/88 156/93 H Pulse Oximetry 97 99 Oxygen Delivery Method Room Air MDM - URI/Sore Throat Lab Data 04/25/23 20:10 04/25/23 20:10 Labs: Lab Results 04/25/23 04/25/23 04/25/23 Range/Units 18:20 20:10 20:10 WBC 5.5 (4.5-11.0) X10^3/uL RBC 4.69 (4.5-5.9) X10^6/uL Hgb 14.6 (13.5-17.5) g/dL Hct 42.9 (41-53) % MCV 91.6 (80-100) fL MCH 31.1 (26-34) PG MCHC 34.0 (30-36) % RDW 14.5 (11.6-14.8) % Plt Count 214 (150-400) X10^3/uL Neut % (Auto) 78.6 H (50-75) % Lymph % (Auto) 12.7 L (25-40) % [place] % (Auto) 7.1 (3-14) % Eos % (Auto) 0.7 L (2-4) % Baso % (Auto) 0.9 (0-2) % Neut # (Auto) 4300 (2934-7609) /uL Lymph # (Auto) 700 L (3395-2872) /uL [place] # (Auto) 400 (0-900) /uL Eos # (Auto) 0 (0-450) /uL Baso # (Auto) 0 (0-100) /uL Sodium 135 L (137-145) mmol/L Potassium 4.3 (3.4-5.1) mmol/L Chloride 99 (98-107) mmol/L Carbon Dioxide 28 (22-32) mmol/L BUN 11 (9-20) mg/dL Creatinine 1.06 (0.66-1.25) mg/dL Estimated GFR > 60 (>60) mL/min BUN/Creatinine Ratio 10.4 (6-22) Glucose 108 H (70-100) mg/dL Lactate (0.7-2.1) mmol/L Calcium 9.4 (8.4-10.2) mg/dL Total Bilirubin 0.6 (0.2-1.3) mg/dL AST 594 H (17-59) IU/L ALT 523 H (<50) IU/L Alkaline Phosphatase 82 (38-126) U/L Total Protein 8.3 H (6.3-8.2) g/dL Albumin 4.4 (3.5-5.0) g/dL Globulin 3.9 (1.7-4.1) g/dL Albumin/Globulin Ratio 1.1 (1.0-2.8) SARS-CoV-2 (PCR) Negative (Negative) Influenza A (RT-PCR) Flu a positive H (NEGATIVE) Influenza B (RT-PCR) Flu b negative (NEGATIVE) RSV (PCR) Negative (Negative) 04/25/23 Range/Units 20:10 WBC (4.5-11.0) X10^3/uL RBC (4.5-5.9) X10^6/uL Hgb (13.5-17.5) g/dL Hct (41-53) % MCV (80-100) fL MCH (26-34) PG MCHC (30-36) % RDW (11.6-14.8) % Plt Count (150-400) X10^3/uL Neut % (Auto) (50-75) % Lymph % (Auto) (25-40) % [place] % (Auto) (3-14) % Eos % (Auto) (2-4) % Baso % (Auto) (0-2) % Neut # (Auto) (7410-9429) /uL Lymph # (Auto) (8170-0799) /uL [place] # (Auto) (0-900) /uL Eos # (Auto) (0-450) /uL Baso # (Auto) (0-100) /uL Sodium (137-145) mmol/L Potassium (3.4-5.1) mmol/L Chloride (98-107) mmol/L Carbon Dioxide (22-32) mmol/L BUN (9-20) mg/dL Creatinine (0.66-1.25) mg/dL Estimated GFR (>60) mL/min BUN/Creatinine Ratio (6-22) Glucose (70-100) mg/dL Lactate 1.9 (0.7-2.1) mmol/L Calcium (8.4-10.2) mg/dL Total Bilirubin (0.2-1.3) mg/dL AST (17-59) IU/L ALT (<50) IU/L Alkaline Phosphatase (38-126) U/L Total Protein (6.3-8.2) g/dL Albumin (3.5-5.0) g/dL Globulin (1.7-4.1) g/dL Albumin/Globulin Ratio (1.0-2.8) SARS-CoV-2 (PCR) (Negative) Influenza A (RT-PCR) (NEGATIVE) Influenza B (RT-PCR) (NEGATIVE) RSV (PCR) (Negative) Imaging Data Chest x-ray: Radiologist's Impression: PROCEDURE:? XR CHEST 1V ? INDICATIONS:? influenza ? TECHNIQUE:? One view of the chest was acquired.? ? COMPARISON:? None. ? FINDINGS:? ? Surgical changes and devices:? None.? ? Lungs and pleura:? Lungs are clear.? No pleural effusions or pneumothorax.? ? Mediastinum:? Mediastinal contours appear normal.? Heart size is normal.? ? Bones and chest wall:? No suspicious bony lesions.? Overlying soft tissues appear unremarkable.? ? IMPRESSION:? No acute pulmonary process. ? ? Dictated by: Vani Emery M.D. on 04/25/2023 at 20:08 ECG Data Interpretation: Sinus tachycardia rate 112 [place] interval 58 QRS 82 QTC 39 Q-wave noted in lead [address] changes, similar to priors no ischemic changes MDM Narrative Medical decision making narrative: Patient 52-year-old male who presents with upper respiratory like symptoms tachycardic ready persistently not hypoxic. Positive for influenza A. Blood work is overall reassuring without leukocytosis her electrolyte abnormality. X- ray does not show any evidence of pneumonia. He is given fluids heart rate improved he overall feels better at this time supportive care only does not meet admission criteria Discharge Plan Departure Patient Disposition: Home Clinical Impression: Influenza A Instructions: DI for Influenza -- Adult Activity Restrictions/Additional Instructions: *You have been diagnosed with influenza a *What to do: Increase activity as tolerated increase fluids. Expect to feel poorly for the next couple of days *Continue to take medications as directed Motrin 600 mg every 6 hours if needed for mild Tylenol 1000 mg every 6 hours if needed for [id number] pain *Follow up with your primary care provider in 2-3 days or call [phone] *Return to ER if you should have increased difficulty breathing not tolerating fluids or any new, worsening or concerning symptoms Prescriptions: No Action testosterone [Testopel] 75 MG pellet 75 mg PO Qty: 0 cephalexin [Keflex] 500 MG capsule 500 mg PO TID 7 Days Qty: 0 0RF naproxen 500 MG tablet 500 mg PO Q12HP PRNQty: 20 0RF cyclobenzaprine 10 mg tablet 10 mg PO TID PRN (Reason: muscle spasm) Qty: 14 0RF ketorolac 10 mg tablet 10 mg PO Q6H PRN (Reason: pain) Qty: 14 0RF lidocaine [Lidoderm] 5 % adhesive patch,medicated 1 patch TOP DAILY Qty: 15 0RF Rx Instructions: leave on most painful area for 12 hrs doxycycline hyclate 100 mg tablet 100 mg PO BID Qty: 20 0RF amoxicillin-pot clavulanate 875-125 mg tablet 1 tab PO BID Qty: 18 0RF Referrals: Javy Banegas MD [Primary Care Provider] - Stand Alone Forms: Patient Portal/API
--- NOTE | 2023-04-25 19:43 | DI.RAD.S_ITS ---
PROCEDURE: XR CHEST 1V INDICATIONS: influenza TECHNIQUE: One view of the chest was acquired. COMPARISON: None. FINDINGS: Surgical changes and devices: None. Lungs and pleura: Lungs are clear. No pleural effusions or pneumothorax. Mediastinum: Mediastinal contours appear normal. Heart size is normal. Bones and chest wall: No suspicious bony lesions. Overlying soft tissues appear unremarkable. IMPRESSION: No acute pulmonary process. Dictated by: Vani Emery M.D. on 04/25/2023 at 20:08 Approved by: Vani Emery M.D. on 04/25/2023 at 20:08
[2023-04-25] MEDS: SODIUM CHLORIDE 0.9% 1,000 ML 1000 ML IV (20:15)
[2023-04-25] MEDS: KETOROLAC 30 MG/ML VIAL 15 MG IV (20:15)
[2023-04-25 20:21] LABS: Add Manual Diff / Slide Review NO; Basophils Absolute Auto 0 /uL (0-100); Basophils Percent Auto 0.9 % (0-2); Eosinophils Absolute Auto 0 /uL (0-450); Eosinophils Percent Auto 0.7 % (2-4); Hematocrit 42.9 % (41-53); Hemoglobin 14.6 g/dL (13.5-17.5); Lymphocytes Absolute Auto 700 /uL (1100-4500); Lymphocytes Percent Auto 12.7 % (25-40); Mean Corpuscular Hemoglobin 31.1 PG (26-34); Mean Corpuscular Volume 91.6 fL (80-100); Monocytes Absolute Auto 400 /uL (0-900); Monocytes Percent Auto 7.1 % (3-14); Neutrophils Absolute Auto 4300 /uL (1500-7000); Neutrophils Percent Auto 78.6 % (50-75); Platelet Count 214 X10^3/uL (150-400); Red Blood Cell Count 4.69 X10^6/uL (4.5-5.9); Red Cell Distribution Width 14.5 % (11.6-14.8); White Blood Cell Count 5.5 X10^3/uL (4.5-11.0)
[2023-04-25 20:22] VITALS: BP 136/88; PULSE 113; RESP 16; O2SAT 97
[2023-04-25 20:33] LABS: Lactate (Lactic Acid) 1.9 mmol/L (0.7-2.1); Potassium 4.3 mmol/L (3.4-5.1)
[2023-04-25 20:34] LABS: Alanine Aminotransferase 523 IU/L (<50); Albumin 4.4 g/dL (3.5-5.0); Albumin Globulin Ratio 1.1 (1.0-2.8); Alkaline Phosphatase 82 U/L (38-126); Aspartate Aminotransferase 594 IU/L (17-59); BUN Creatinine Ratio 10.4 (6-22); Bilirubin Total 0.6 mg/dL (0.2-1.3); Blood Urea Nitrogen 11 mg/dL (9-20); Calcium 9.4 mg/dL (8.4-10.2); Carbon Dioxide 28 mmol/L (22-32); Chloride 99 mmol/L (98-107); Estimated Glomerular Filt Rate > 60 mL/min (>60); Globulin 3.9 g/dL (1.7-4.1); Glucose 108 mg/dL (70-100); HEMOLYSIS 16 (0-50); Sodium 135 mmol/L (137-145); Total Protein 8.3 g/dL (6.3-8.2)
[2023-04-25 21:30] VITALS: BP 156/93; PULSE 100; RESP 16; TEMP 37.7; O2SAT 99
== END 2023-04-25 21:31 | disposition home or self-care (01) ==
PROVIDERS: Emergency Provider Emergency Medicine; Family Provider Internal Medicine Endocrinology, Diabetes & Metabolism; PCP Internal Medicine Endocrinology, Diabetes & Metabolism
DX: J10.1 Influenza due to other identified influenza virus with other respiratory manifestations (principal); Z20.822 Contact with and (suspected) exposure to COVID-19
CPT/HCPCS: 0241U; 36415; 71045; 80053; 83605; 85025; 87040; 93005; 93010; 96361; 96374; 99284; J1885

== ENCOUNTER 2023-07-28 03:44 | Emergency (ER) | payer OTHER, MEDICAID, SELFPAY ==
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
[2023-07-28 03:48] VITALS: O2SAT 87
[2023-07-28 03:49] VITALS: BP 175/107; PULSE 96; O2SAT 98
[2023-07-28 03:52] VITALS: BP 175/107; PULSE 100; RESP 18; TEMP 36.6; O2SAT 99; BMI 32.5
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
[2023-07-28 04:00] VITALS: BP 175/114; PULSE 93; O2SAT 97
[2023-07-28 04:30] VITALS: BP 163/97; PULSE 91; O2SAT 95
--- NOTE | 2023-07-28 04:40 | PC.NURSE ---
ultrasound in room to do US of lower ext
[2023-07-28] MEDS: DOXYCYCLINE HYCLATE 100 MG TABLET PO (04:58)
[2023-07-28] MEDS: OXYCODONE/APAP 5/325 PREPACK 1 BOTTLE MISC (04:58)
--- NOTE | 2023-07-30 08:22 | PC.NURSE ---
Patient's MRSA result overviewed by ER provider Bishnu with previously prescribed RX for doxycycline. No new orders.
--- NOTE | 2023-07-30 08:24 | PC.NURSE ---
Pt's MRSA result reviewed by ER provider Dr. Goetz. Pt has previously prescribed RX for doxycycline which bacteria is sensitive to. No new orders.
== END 2023-07-28 05:02 | disposition home or self-care (01) ==
PROVIDERS: Emergency Provider Emergency Medicine; Family Provider Internal Medicine Endocrinology, Diabetes & Metabolism; PCP Internal Medicine Endocrinology, Diabetes & Metabolism
DX: L03.115 Cellulitis of right lower limb (principal)
CPT/HCPCS: 73610; 87070; 87075; 87077; 87147; 87186; 87205; 93971; 99283

== ENCOUNTER 2023-08-09 17:04 | Emergency (ER) | payer OTHER, MEDICAID, SELFPAY ==
[2023-08-09 17:07] VITALS: BP 185/101; PULSE 96; RESP 16; TEMP 36.7; O2SAT 99; BMI 33.9
[2023-08-09 17:17] VITALS: PULSE 99; O2SAT 100
[2023-08-09 17:26] VITALS: BP 168/89; PULSE 93; O2SAT 97
[2023-08-09 17:30] VITALS: BP 153/88; PULSE 93; O2SAT 95
[2023-08-09 18:00] VITALS: BP 171/104; PULSE 92; O2SAT 98
--- NOTE | 2023-08-09 18:18 | ED.RECABL ---
HPI - Recheck/Abnormal Lab/Rx <Julio César Barillas PA-C - Last Filed: 08/09/23 18:33> General Chief Complaint: Recheck/Abnormal Lab/Rx Stated Complaint: rt foot pain/here t-14 Time Seen by Provider: 08/09/23 17:29 Source: patient History of Present Illness HPI narrative: 52-year-old male with history of smoking presents to the ED for right foot pain. Patient was seen in the ED on 07/28/2023, diagnosed with cellulitis, prescribed doxycycline for 10 days. Patient states he has missed a few doses of his doxycycline. Patient states that the wound appears to be healing well and improving, that the redness has reduced. However, patient states that his right foot is painful, pain is described as a burning sensation. Patient denies numbness, tingling, weakness. Patient denies fever, chills, nausea, vomiting. Related Data Home Medications Medication Instructions Recorded Confirmed testosterone 75 mg implant pellet 75 mg PO ##0 08/24/16 (Testopel) Previous Rx's Medication Instructions Recorded cephalexin 500 mg capsule (Keflex) 500 mg PO TID 7 days #0 caps 08/24/16 naproxen 500 mg tablet 500 mg PO Q12HP PRN #20 tabs 08/24/16 cyclobenzaprine 10 mg tablet 10 mg PO TID PRN muscle spasm #14 09/07/20 tabs ketorolac 10 mg tablet 10 mg PO Q6H PRN pain #14 tabs 09/07/20 lidocaine 5 % topical patch 1 patch topical DAILY #15 ea 09/07/20 (Lidoderm) doxycycline hyclate 100 mg tablet 100 mg PO BID #20 tabs 11/02/21 amoxicillin 875 mg-potassium 1 tab PO BID #18 tabs 10/25/22 clavulanate 125 mg tablet doxycycline hyclate 100 mg tablet 100 mg PO BID #20 tabs 07/28/23 sulfamethoxazole 800 1 tab PO Q12H 10 days #20 tabs 08/09/23 mg-trimethoprim 160 mg tablet (Bactrim DS) Allergies Allergy/AdvReac Type Severity Reaction Status Date / Time No Known Drug Allergies Allergy Verified 08/09/23 17:07 Review of Systems <Julio César Barillas PA-C - Last Filed: 08/09/23 18:33> Constitutional Constitutional: Denies chills, Denies fatigue, Denies fever(s), Denies frequent falls, Denies lethargy and Denies weakness Eyes Eyes: Denies change in vision, Denies eye discharge, Denies irritation and Denies loss of vision ENT Ears, Nose, Mouth, and Throat: Denies change in voice, Denies dizziness, Denies neck pain, Denies sore throat and Denies throat swelling Cardiovascular Cardiovascular: Denies chest pain, Denies irregular heart rhythm, Denies lightheadedness, Denies palpitations, Denies dyspnea, Denies dyspnea on exertion and Denies orthopnea Respiratory Respiratory: Denies cough, Denies dyspnea, Denies dyspnea on exertion and Denies wheezing Gastrointestinal Gastrointestinal: Denies abdominal pain, Denies change in bowel habits, Denies diarrhea, Denies nausea and Denies vomiting Musculoskeletal Musculoskeletal: Denies neck pain and Denies numbness Integumentary/Breasts Skin/Breast: Denies pruritus, Denies erythema, Denies rash, Reports skin pain and Reports wounds Neurologic Neurologic: Denies behavioral changes, Denies confusion, Denies dizziness, Denies frequent falls, Denies loss of vision, Denies numbness and Denies weakness Psychiatric Psychiatric: Denies anxiety, Denies behavioral changes, Denies confusion, Denies depression, Denies homicidal ideation and Denies suicidal ideation Endocrine Endocrine: Denies fatigue, Denies flushing and Denies palpitations Hematologic/Lymphatic Hematologic/Lymphatic: Denies easy bruising Allergic/Immunologic Allergic/Immunologic: Denies urticaria, Denies throat swelling and Denies wheezing Patient History <Julio César Barillas PA-C - Last Filed: 08/09/23 18:33> Medical History Wound of left leg Social History Smoking Status: Current every day smoker Smoking Status: Current every day smoker tobacco type: cigarettes alcohol intake frequency: 0-2 drinks per day Substance Use Type: marijuana Exam <Julio César Barillas PA-C - Last Filed: 08/09/23 18:33> Narrative Exam Narrative: Const General:?cooperative, healthy appearing and comfortable HENWI Head:?normal to inspection Ears:?hearing grossly normal bilaterally Nose:?external nose normal Face and sinus:?normal facial exam and sinuses nontender Mouth:?oral mucosae normal Throat:?posterior oropharynx normal Eyes General:?appearance normal, both eyes and all related structures Neck Neck:?normal visual inspection and no lymphadenopathy noted Resp Effort & Inspection:?normal respiratory effort Auscultation:?clear to auscultation bilaterally Cardio Rate:?regular rate Rhythm:?regular rhythm Integumentary Right ankle has a healing wound on the lateral aspect. No discharge noted. The right foot appears to still have some residual erythema, swelling. Pedal pulses are intact and normal. Patient is neurovascularly intact. Neuro General:?patient alert, patient awake and patient oriented x3 Initial Vital Signs Initial Vital Signs: Vital Signs Temperature 98.1 F 08/09/23 17:07 Pulse Rate 96 H 08/09/23 17:07 Respiratory Rate 16 08/09/23 17:07 Blood Pressure 185/101 H 08/09/23 17:07 Pulse Oximetry 99 08/09/23 17:07 Oxygen Delivery Method Room Air 08/09/23 17:07 <Rd Yao DO - Last Filed: 08/12/23 18:00> Initial Vital Signs Initial Vital Signs: Vital Signs Temperature 98.1 F 08/09/23 17:07 Pulse Rate 96 H 08/09/23 17:07 Respiratory Rate 16 08/09/23 17:07 Blood Pressure 185/101 H 08/09/23 17:07 Pulse Oximetry 99 08/09/23 17:07 Oxygen Delivery Method Room Air 08/09/23 17:07 Course <Julio César Barillas PA-C - Last Filed: 08/09/23 18:33> Vital Signs Vital signs: Vital Signs - 8 hr 08/09/23 17:07 08/09/23 17:17 08/09/23 17:26 Temperature 98.1 F Pulse Rate 96 H 99 H 93 H Respiratory Rate 16 Blood Pressure 185/101 H Pulse Oximetry 99 100 97 Oxygen Delivery Method Room Air 08/09/23 17:26 08/09/23 17:30 08/09/23 17:30 Temperature Pulse Rate 93 H Respiratory Rate Blood Pressure 168/89 H 153/88 H Pulse Oximetry 95 Oxygen Delivery Method 08/09/23 18:00 08/09/23 18:00 Temperature Pulse Rate 92 H Respiratory Rate Blood Pressure 171/104 H Pulse Oximetry 98 Oxygen Delivery Method <DO Rachael Gordon Last Filed: 08/12/23 18:00> Vital Signs Vital signs: Vital Signs - 8 hr 08/09/23 17:07 08/09/23 17:17 08/09/23 17:26 Temperature 98.1 F Pulse Rate 96 H 99 H 93 H Respiratory Rate 16 Blood Pressure 185/101 H Pulse Oximetry 99 100 97 Oxygen Delivery Method Room Air 08/09/23 17:26 08/09/23 17:30 08/09/23 17:30 Temperature Pulse Rate 93 H Respiratory Rate Blood Pressure 168/89 H 153/88 H Pulse Oximetry 95 Oxygen Delivery Method 08/09/23 18:00 08/09/23 18:00 Temperature Pulse Rate 92 H Respiratory Rate Blood Pressure 171/104 H Pulse Oximetry 98 Oxygen Delivery Method MDM - Recheck/Abnormal Lab/Rx <Julio César Barillas PA-C - Last Filed: 08/09/23 18:33> MDM Narrative Medical decision making narrative: 52-year-old male with history of smoking presents to the ED for right foot pain. Patient appears neurovascularly intact. The wound seems to be healing and improving. There is some residual erythema of the right foot and ankle. Pedal pulses intact. There is full range of motion. Gait is normal. It appears that patient might still have some residual infection due to missing some doses. Will prescribe Bactrim. Recommend follow-up with PCP. ED return precautions discussed with patient. Patient verbalized understanding. Medical records reviewed: Yes Discharge Plan Departure Patient Disposition: Home Clinical Impression: Cellulitis Qualifiers: Site of cellulitis: extremity Site of cellulitis of extremity: lower extremity Laterality: right Qualified Code(s): L03.115 - Cellulitis of right lower limb Instructions: DI for Cellulitis -- Adult Activity Restrictions/Additional Instructions: You were evaluated in the ED today for cellulitis. Your wound appears to be healing well and improving. Given that you have completed your 1st dose of antibiotics, you are being prescribed a 2nd course. Please complete the antibiotics as prescribed. Please follow-up with your PCP for further evaluation. Please return to the ED if you have worsening symptoms, numbness, tingling, weakness, fever, chills. Prescriptions: New sulfamethoxazole-trimethoprim [Bactrim DS] 800-160 mg tablet 1 tab PO Q12H 10 Days Qty: 20 0RF No Action testosterone [Testopel] 75 MG pellet 75 mg PO Qty: 0 cephalexin [Keflex] 500 MG capsule 500 mg PO TID 7 Days Qty: 0 0RF naproxen 500 MG tablet 500 mg PO Q12HP PRNQty: 20 0RF cyclobenzaprine 10 mg tablet 10 mg PO TID PRN (Reason: muscle spasm) Qty: 14 0RF ketorolac 10 mg tablet 10 mg PO Q6H PRN (Reason: pain) Qty: 14 0RF lidocaine [Lidoderm] 5 % adhesive patch,medicated 1 patch TOP DAILY Qty: 15 0RF Rx Instructions: leave on most painful area for 12 hrs doxycycline hyclate 100 mg tablet 100 mg PO BID Qty: 20 0RF amoxicillin-pot clavulanate 875-125 mg tablet 1 tab PO BID Qty: 18 0RF doxycycline hyclate 100 mg tablet 100 mg PO BID Qty: 20 0RF Referrals: Javy Banegas MD [Primary Care Provider] - Stand Alone Forms: Patient Portal/API ED Sign-out <Rd Yao, DO - Last Filed: 08/12/23 18:00> Cosign ED Attending Cosignature Attestation: Dr Yao Co-Sign Statement: I was available for consultation during this patient's emergency department visit. This chart is signed by myself for administrative purposes only. I did not have direct contact with this patient during this visit. They were seen independently by the APC.
== END 2023-08-09 18:26 | disposition home or self-care (01) ==
PROVIDERS: Emergency Provider Student in an Organized Health Care Education/Training Program; Family Provider Internal Medicine Endocrinology, Diabetes & Metabolism; PCP Internal Medicine Endocrinology, Diabetes & Metabolism
DX: L03.115 Cellulitis of right lower limb (principal)
CPT/HCPCS: 99281; 99283

== ENCOUNTER 2024-01-29 15:03 | Emergency (ER) | payer OTHER, MEDICAID, SELFPAY ==
[2024-01-29] VITALS (17 sets, daily range): BP systolic 137–198; BP diastolic 82–115; PULSE 94–102; RESP 13–22; TEMP 36.9; O2SAT 93–99; BMI 33.9
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
[2024-01-29] MEDS: KETOROLAC 30 MG/ML VIAL IM (16:02)
[2024-01-29] MEDS: OXYCODONE IR 5 MG TABLET PO (17:07)
--- NOTE | 2024-01-29 18:55 | PC.NURSE ---
Pt reports shoulder pain (bilateral). Swelling noted to left shoulder. Pt reports limited range of motion in right shoulder.
== END 2024-01-29 18:54 | disposition home or self-care (01) ==
PROVIDERS: Emergency Provider Emergency Medicine; Family Provider Internal Medicine Endocrinology, Diabetes & Metabolism; PCP Internal Medicine Endocrinology, Diabetes & Metabolism
DX: S62.102A Fracture of unspecified carpal bone, left wrist, initial encounter for closed fracture (principal); V29.99XA Rider (driver) (passenger) of other motorcycle injured in unspecified traffic accident, initial encounter
CPT/HCPCS: 29125; 71045; 72125; 73000; 73030; 73080; 73110; 96372; 99284; J1885

== ENCOUNTER → 2024-04-05 15:07 | Outpatient (CLI) | payer OTHER, MEDICAID, SELFPAY ==
[2024-04-05 16:29] LABS: Add Manual Diff / Slide Review NO; Basophils Absolute Auto 100 /uL (0-100); Basophils Percent Auto 0.7 % (0-2); Eosinophils Absolute Auto 200 /uL (0-450); Eosinophils Percent Auto 2.5 % (2-4); Hematocrit 44.4 % (41-53); Hemoglobin 15.1 g/dL (13.5-17.5); Lymphocytes Absolute Auto 2300 /uL (1100-4500); Lymphocytes Percent Auto 31.1 % (25-40); Mean Corpuscular Hemoglobin 31.3 PG (26-34); Monocytes Absolute Auto 500 /uL (0-900); Monocytes Percent Auto 6.5 % (3-14); Neutrophils Absolute Auto 4300 /uL (1500-7000); Neutrophils Percent Auto 59.2 % (50-75); Platelet Count 295 X10^3/uL (150-400); Red Blood Cell Count 4.83 X10^6/uL (4.5-5.9); Red Cell Distribution Width 13.4 % (11.6-14.8); White Blood Cell Count 7.3 X10^3/uL (4.5-11.0)
[2024-04-05 16:58] LABS: Alanine Aminotransferase 98 IU/L (<50); Albumin 4.8 g/dL (3.5-5.0); Albumin Globulin Ratio 1.7 (1.0-2.8); Alkaline Phosphatase 82 U/L (38-126); Aspartate Aminotransferase 82 IU/L (17-59); BUN Creatinine Ratio 14.2 (6-22); Bilirubin Total 1.1 mg/dL (0.2-1.3); Blood Urea Nitrogen 15 mg/dL (9-20); Calcium 9.2 mg/dL (8.4-10.2); Carbon Dioxide 25 mmol/L (22-32); Chloride 106 mmol/L (98-107); Cholesterol 270 mg/dL (140-199); Estimated Glomerular Filt Rate > 60 mL/min (>60); Globulin 2.8 g/dL (1.7-4.1); Glucose 96 mg/dL (70-100); HDL Cholesterol 49 mg/dL (40-60); HEMOLYSIS 16 (0-50); LDL Cholesterol Calculated 181 mg/dL (<100); Potassium 4.5 mmol/L (3.4-5.1); Sodium 139 mmol/L (137-145); Total Protein 7.6 g/dL (6.3-8.2); Triglycerides 201 mg/dL (35-150)
== END ==
PROVIDERS: Family Provider Internal Medicine Endocrinology, Diabetes & Metabolism; PCP Nurse Practitioner Family; Referring Provider Nurse Practitioner Family; Visit Provider Nurse Practitioner Family
DX: E03.9 Hypothyroidism, unspecified (principal); L03.90 Cellulitis, unspecified; R73.03 Prediabetes
CPT/HCPCS: 36415; 80053; 80061; 83036; 85025